=== PATIENT | male | born 1990 | race Caucasian/White ===

== ENCOUNTER 2018-11-17 14:13 | Observation (INO) | payer BC, OTHER ==
[2018-11-17] MEDS ORDERED: NITROGLYCERIN OINT 1 INCH/GM PACKET TOPICAL STA (14:51)
[2018-11-17] MEDS ORDERED: SODIUM CHLORIDE 0.9% 1,000 ML IV STA (14:51)
[2018-11-17] MEDS ORDERED: ASPIRIN 81 MG PO STA (14:51)
--- NOTE | 2018-11-17 14:54 | ED ---
General Adult HPI - General Chief complaint: Chest Pain Stated complaint: Chest pain Time Seen by Provider: 11/17/18 14:45 Source: patient, RN notes reviewed Mode of arrival: ambulatory Limitations: no limitations - History of Present Illness Initial comments: Patient is a pleasant 28-year-old male presenting to the emergency department complaining of chest discomfort. Onset of symptoms was a couple hours prior to arrival. Discomfort was 7 or 8/10 and now is 2 or 3/10. Discomfort feels like tightness in his chest. There is some radiation towards the back. No associated dyspnea or nausea. Patient did feel a little bit sweaty. Patient does have a family history of cardiac disease. No history of similar symptoms previously. - Related Data Home Medications Medication Instructions Recorded Confirmed No Known Home Medications 11/17/18 11/17/18 Allergies Allergy/AdvReac Type Severity Reaction Status Date / Time No Known Allergies Allergy Verified 11/17/18 15:13 Review of Systems ROS Statement: Those systems with pertinent positive or pertinent negative responses have been documented in the HPI. ROS Other: All systems not noted in ROS Statement are negative. Constitutional: Denies: fever Eyes: Denies: eye pain ENT: Denies: ear pain Respiratory: Denies: dyspnea Cardiovascular: Reports: chest pain Endocrine: Denies: fatigue Gastrointestinal: Denies: abdominal pain, nausea Genitourinary: Denies: dysuria Musculoskeletal: Reports: as per HPI Skin: Denies: rash Neurological: Denies: weakness Past Medical History Past Medical History: No Reported History History of Any Multi-Drug Resistant Organisms: None Reported Additional Past Surgical History / Comment(s): hand surgery Past Psychological History: No Psychological Hx Reported Smoking Status: Current every day smoker Past Alcohol Use History: None Reported Past Drug Use History: Marijuana General Exam Limitations: no limitations General appearance: alert, in no apparent distress Head exam: Present: atraumatic Eye exam: Present: normal appearance, PERRL ENT exam: Present: normal oropharynx Neck exam: Present: normal inspection Respiratory exam: Present: normal lung sounds bilaterally. Absent: chest wall tenderness Cardiovascular Exam: Present: regular rate, normal rhythm Expanded Peripheral pulses: 2+: Radial (R), Radial (L), Dorsalis Pedis (R), Dorsalis Pedis (L) GI/Abdominal exam: Present: soft. Absent: tenderness Extremities exam: Present: normal inspection. Absent: pedal edema, calf tenderness Neurological exam: Present: alert Psychiatric exam: Present: normal affect, normal mood Skin exam: Present: normal color Course Vital Signs 11/17/18 11/17/18 11/17/18 14:24 15:00 16:00 Temperature 98.2 F Pulse Rate 78 57 L 52 L Respiratory 18 16 16 Rate Blood Pressure 146/92 121/76 104/68 O2 Sat by Pulse 98 99 98 Oximetry EKG Findings - EKG Comments: EKG Findings:: Normal sinus rhythm at 61. VA 154. QRS 102. QT 392. QTC 394. Normal axis. Incomplete right bundle-branch block. No acute ST change. Medical Decision Making - Medical Decision Making Patient reevaluated and unchanged. Discomfort still remains between 2 and 3 however not resolved. Case was discussed in detail with Dr. lopez, covering for hospital call, who will admit. - Lab Data Result diagrams: 11/17/18 14:50 11/17/18 14:50 Lab Results 11/17/18 11/17/18 11/17/18 Range/Units 14:50 14:50 14:50 WBC 5.3 (3.8-10.6) k/uL RBC 4.61 (4.30-5.90) m/uL Hgb 13.8 (13.0-17.5) gm/dL Hct 40.9 (39.0-53.0) % MCV 88.7 (80.0-100.0) fL MCH 29.9 (25.0-35.0) pg MCHC 33.7 (31.0-37.0) g/dL RDW 12.6 (11.5-15.5) % Plt Count 242 (150-450) k/uL Neutrophils % 57 % Lymphocytes % 33 % Monocytes % 6 % Eosinophils % 2 % Basophils % 1 % Neutrophils # 3.0 (1.3-7.7) k/uL Lymphocytes # 1.7 (1.0-4.8) k/uL Monocytes # 0.3 (0-1.0) k/uL Eosinophils # 0.1 (0-0.7) k/uL Basophils # 0.0 (0-0.2) k/uL PT (9.0-12.0) sec INR (<1.2) APTT (22.0-30.0) sec D-Dimer (<0.60) mg/L FEU Sodium 140 (137-145) mmol/L Potassium 4.1 (3.5-5.1) mmol/L Chloride 106 (98-107) mmol/L Carbon Dioxide 28 (22-30) mmol/L Anion Gap 6 mmol/L BUN 16 (9-20) mg/dL Creatinine 0.91 (0.66-1.25) mg/dL Est GFR (CKD-EPI)AfAm >90 (>60 ml/min/1.73 sqM) Est GFR (CKD-EPI)NonAf >90 (>60 ml/min/1.73 sqM) Glucose 107 H (74-99) mg/dL Calcium 9.8 (8.4-10.2) mg/dL Magnesium 2.0 (1.6-2.3) mg/dL Total Bilirubin 1.4 H (0.2-1.3) mg/dL AST 35 (17-59) U/L ALT 35 (21-72) U/L Alkaline Phosphatase 56 (38-126) U/L Total Creatine Kinase 113 (55-170) U/L CK-MB (CK-2) 0.4 (0.0-2.4) ng/mL CK-MB (CK-2) Rel Index 0.4 Troponin I <0.012 (0.000-0.034) ng/mL Total Protein 6.8 (6.3-8.2) g/dL Albumin 4.3 (3.5-5.0) g/dL 11/17/18 Range/Units 14:50 WBC (3.8-10.6) k/uL RBC (4.30-5.90) m/uL Hgb (13.0-17.5) gm/dL Hct (39.0-53.0) % MCV (80.0-100.0) fL MCH (25.0-35.0) pg MCHC (31.0-37.0) g/dL RDW (11.5-15.5) % Plt Count (150-450) k/uL Neutrophils % % Lymphocytes % % Monocytes % % Eosinophils % % Basophils % % Neutrophils # (1.3-7.7) k/uL Lymphocytes # (1.0-4.8) k/uL Monocytes # (0-1.0) k/uL Eosinophils # (0-0.7) k/uL Basophils # (0-0.2) k/uL PT 10.6 (9.0-12.0) sec INR 1.0 (<1.2) APTT 27.0 (22.0-30.0) sec D-Dimer 0.20 (<0.60) mg/L FEU Sodium (137-145) mmol/L Potassium (3.5-5.1) mmol/L Chloride (98-107) mmol/L Carbon Dioxide (22-30) mmol/L Anion Gap mmol/L BUN (9-20) mg/dL Creatinine (0.66-1.25) mg/dL Est GFR (CKD-EPI)AfAm (>60 ml/min/1.73 sqM) Est GFR (CKD-EPI)NonAf (>60 ml/min/1.73 sqM) Glucose (74-99) mg/dL Calcium (8.4-10.2) mg/dL Magnesium (1.6-2.3) mg/dL Total Bilirubin (0.2-1.3) mg/dL AST (17-59) U/L ALT (21-72) U/L Alkaline Phosphatase (38-126) U/L Total Creatine Kinase (55-170) U/L CK-MB (CK-2) (0.0-2.4) ng/mL CK-MB (CK-2) Rel Index Troponin I (0.000-0.034) ng/mL Total Protein (6.3-8.2) g/dL Albumin (3.5-5.0) g/dL - Radiology Data Radiology results: image reviewed (Chest x-ray shows no acute process) Disposition Clinical Impression: Chest pain Disposition: ADMITTED IP TO THIS HOSP Is patient prescribed a controlled substance at d/c from ED?: No Referrals: None,Stated [Primary Care Provider] - 1-2 days Decision Time: 16:34
[2018-11-17 15:13] LABS: Basophils % (A) 1 %; Eosinophils # (A) 0.1 k/uL (0-0.7); Eosinophils % (A) 2 %; HCT 40.9 % (39.0-53.0); HGB 13.8 gm/dL (13.0-17.5); Lymphocytes # (A) 1.7 k/uL (1.0-4.8); Lymphocytes % (A) 33 %; MCH 29.9 pg (25.0-35.0); MCHC 33.7 g/dL (31.0-37.0); MCV 88.7 fL (80.0-100.0); Mean Platelet Volume 7.3; Monocytes # (A) 0.3 k/uL (0-1.0); Monocytes % (A) 6 %; Neutrophils % (A) 57 %; Platelet Count 242 k/uL (150-450); RBC 4.61 m/uL (4.30-5.90); RDW 12.6 % (11.5-15.5); WBC 5.3 k/uL (3.8-10.6)
[2018-11-17 15:25] LABS: ALT 35 U/L (21-72); AST 35 U/L (17-59); Albumin 4.3 g/dL (3.5-5.0); Alkaline Phosphatase 56 U/L (38-126); Anion Gap 6 mmol/L; Blood Urea Nitrogen 16 mg/dL (9-20); Calcium 9.8 mg/dL (8.4-10.2); Carbon Dioxide 28 mmol/L (22-30); Chloride 106 mmol/L (98-107); Glucose 107 mg/dL (74-99); Potassium 4.1 mmol/L (3.5-5.1); Sodium 140 mmol/L (137-145); Total Bilirubin 1.4 mg/dL (0.2-1.3); Total Protein 6.8 g/dL (6.3-8.2)
[2018-11-17 15:27] LABS: D-Dimer 0.2 mg/L FEU (<0.60); Prothrombin Time 10.6 sec (9.0-12.0)
[2018-11-17 15:32] LABS: Creatine Kinase 113 U/L (55-170)
[2018-11-17 15:45] LABS: Creatine Kinase MB 0.4 ng/mL (0.0-2.4); Troponin I <0.012 ng/mL (0.000-0.034)
--- NOTE | 2018-11-17 15:57 | XR ---
EXAMINATION TYPE: XR chest 2V DATE OF EXAM: 11/17/2018 COMPARISON: None HISTORY: 28-year-old male with left-sided chest pain TECHNIQUE: PA and lateral views FINDINGS: The cardiomediastinal silhouette, aorta, and pulmonary vasculature are within normal limits. Some str niles atelectasis in the midlung regions. Otherwise, lungs and pleural spaces are clear. IMPRESSION: No acute cardiopulmonary process.
[2018-11-17] MEDS ORDERED: NITROGLYCERIN SL TABS 0.4 MG TAB SUBLINGUAL PRN (16:34)
[2018-11-17 17:45] VITALS: BMI 23.3
[2018-11-17] MEDS ORDERED: NALOXONE 0.4 MG/ML 1 ML VIAL IV PRN (17:48)
[2018-11-17] MEDS ORDERED: ACETAMINOPHEN TAB 325 MG TAB PO PRN (17:48)
--- NOTE | 2018-11-17 17:51 | P.HPIM ---
History of Present Illness H&P Date: 11/17/18 Chief Complaint: chest pain Patient is a 28-year-old male with a past medical history of seizure disorder without seizures in years and off any medication as well as tobacco abuse who presented to the ER with complaints of chest pain. In the ER he underwent an extensive evaluation. His initial vital signs within normal limits. Laboratory analysis showed a slightly elevated bilirubin. Initial troponin was negative. EKG showed NSR at [address]-T wave changes. He was admitted for obs due to chest pain. Patient seen and examined at bedside in the ER. He was sitting drinking coffee this morning developed left-sided chest pain that went through to his back. It was shooting initially and then became tight in nature. It was associated with diaphoresis. He continued until he came to the ER. Improved with nitroglycerin. He denies any associated shortness of breath, lightheadedness, dizziness, pain in his jaw, unusual numbness or tingling, or nausea. He has not recently started or stopped any medications. He has not done anything unusual such as moving heavy objects, starting an exercise program, or taking long trips. He has increased stress at home as he has a 3 month old. He denies any recent cough, cold, fever, flu, or other unusual symptoms. 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 His father reportedly had multiple heart attacks in his 20s and 30s but does not have any stents placed is still alive and has not had any coronary artery bypass grafting performed. His maternal grandmother had a heart attack and multiple strokes. He smokes approximately 1.5 packs per day. No other risk factors. He denies any illicit drug use. He states that he had a stress test years ago. He is not having chest pain similar to this in the past. Review of Systems Pertinent positives and negatives as discussed in HPI, a complete review of systems was performed and all other systems are negative. 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 - Past Family History Father Family Medical History: Myocardial Infarction ([place]) Additional Family Medical History / Comment(s): Reported to have 3 heart attacks between his 20s and 30s Grandmother Additional Family Medical History / Comment(s): Heart attack and multiple strokes Medications and Allergies Home Medications Medication Instructions Recorded Confirmed Type No Known Home Medications 11/17/18 11/17/18 History Allergies Allergy/AdvReac Type Severity Reaction Status Date / Time No Known Allergies Allergy Verified 11/17/18 15:13 Physical Exam Osteopathic Statement: *. No significant issues noted on an osteopathic structural exam other than those noted in the History and Physical/Consult. Vitals: Vital Signs Temp Pulse Resp BP Pulse Ox 11/17/18 17:00 97.9 F 64 18 121/69 99 11/17/18 16:00 52 L 16 104/68 98 11/17/18 15:00 57 L 16 121/76 99 11/17/18 14:24 98.2 F 78 18 146/92 98 Intake and Output 11/17/18 11/17/18 11/17/18 06:59 14:59 22:59 Other: Weight 68.039 kg General: non toxic, no distress, appears at stated age, normal weight Derm: no unusual rashes/lesions no unusual ecchymoses, warm, dry Head: atraumatic, normocephalic, symmetric Eyes: EOMI, no lid lag, anicteric sclera, pupils equal round reactive to light ENT: Nose and ears atraumatic, no thrush, no pharyngeal erythema Neck: No thyromegaly, no cervical lymphadenopathy, trachea midline, supple Mouth: no lip lesion, mucus membranes moist Cardiovascular: S1S2 reg with fixed split S2, positive posterior tibial pulse bilateral, no edema, capillary refill less than 2 seconds, pain to palpation over left chest wall Lungs: CTA bilateral, no rhonchi, no rales , no accessory muscle use Abdominal: soft, nontender to palpation, no guarding, no appreciable organomegaly, normal bowel sounds Ext: no gross muscle atrophy, muscle strength 5 out of 5 in all 4 extremities grossly, no contractures, pain in left chest wall with abduction and with internal rotation of arm, positive empty can test, pain over biceps tendon insertion point with rotating wrist Neuro: CN II-XI grossly intact, light touch intact all 4 extremities, finger to nose within normal limits, Psych: Alert, oriented, appropriate affect Results CBC & Chem 7: 11/17/18 14:50 11/17/18 14:50 Labs: Abnormal Lab Results - Last 24 Hours (Table) 11/17/18 Range/Units 14:50 Glucose 107 H (74-99) mg/dL Total Bilirubin 1.4 H (0.2-1.3) mg/dL Comments: EKG is reviewed by myself reveals normal sinus rhythm at a rate of 61, CT 154, QRS 102, and QTC 394. No significant ST-T wave changes. Chest x-ray: report reviewed Thrombosis Risk Factor Assmnt - DVT/VTE Prophylaxis DVT/VTE Prophylaxis: Low risk, early ambulation encouraged Assessment and Plan Assessment: Chest pain, Biceps tendinitis -Risk factors include positive family history and tobacco abuse: Serial troponins, aspirin, cardio consult, and lipid profile -If cleared by cardiology then a trial of Motrin 600 mg every 8 hours 72 hours and Medrol Dosepak follow-up with PCP if no improvement consider orthopedic consultation -Anticipate discharge home in a.m. -With shoulder pain could be referred from gallbladder and elevated bilirubin will check gallbladder ultrasound Tobacco abuse Cessation The patient is placed in observation with an anticipated less than 2 per night stay for evaluation of chest pain. Surrogate decision-maker: -shelly CODE STATUS:Full code DVT prophylaxis: early ambulation Discussed with: patient, family, ed physician Anticipated discharge date: [address]: home A total of 55 minutes was spent on the care of this complex patient more than 50 % of the time was spent in counseling and care coordination.
[2018-11-17] MEDS: NITROGLYCERIN OINT 1 INCH/GM PACKET TOPICAL SCH (19:23)
[2018-11-17 21:34] LABS: Creatine Kinase 101 U/L (55-170)
[2018-11-17 21:47] LABS: Creatine Kinase MB 0.3 ng/mL (0.0-2.4); Troponin I <0.012 ng/mL (0.000-0.034)
[2018-11-18] MEDS: NITROGLYCERIN OINT 1 INCH/GM PACKET TOPICAL SCH ×2 (01:21→05:48)
[2018-11-18 03:23] LABS: Cholesterol 189 mg/dL (<200); HDL Cholesterol 35 mg/dL (40-60); LDL Cholesterol,Calculated 129 mg/dL (0-99); Triglycerides 125 mg/dL (<150)
[2018-11-18 03:25] LABS: Creatine Kinase 98 U/L (55-170)
[2018-11-18 03:39] LABS: Creatine Kinase MB 0.2 ng/mL (0.0-2.4); Troponin I <0.012 ng/mL (0.000-0.034)
--- NOTE | 2018-11-18 08:10 | US ---
EXAMINATION TYPE: US gallbladder DATE OF EXAM: 11/18/2018 COMPARISON: NONE CLINICAL HISTORY: pain, elevated pneumonia. chest pain, SOB EXAM MEASUREMENTS: Liver Length: 17.2 cm Gallbladder Wall: 0.2 cm CBD: 0.6 cm Right Kidney: 10.9 x 4.5 x 4.1 cm Pancreas: wnl Liver: wnl Gallbladder: echogenic foci on anterior wall toward neck, nonmobile, may represent a polyp, there ap pears to be small fold at neck level also Evidence for sonographic Crespo's sign: no CBD: wnl Right Kidney: 3 hyperechoic areas noted on anterior portion of right kidney, possible angiomyolipoma s versus other etiology Limited views of the pancreas are normal. The liver is upper limits of normal in size without biliary dilatation. There is a nonmobile 3 mm lesion within the neck of the gallbladder. This may represent a small gallb ladder polyp. The gallbladder wall measures 2 mm. The distal common hepatic duct is upper limits of n ormal 6 mm. There is no sonographic Crespo's sign. There are several tiny echogenic foci within the right kidney the largest measures 5 mm. This may rep resent fat interposed between a lobulated kidney or may represent small angiomyolipomas. There is no evidence of hydronephrosis. IMPRESSION: 1. PROBABLE GALLBLADDER POLYP. 2. ECHOGENIC FOCI SURROUNDING THE RIGHT KIDNEY DESCRIBED ABOVE.
[2018-11-18 08:47] VITALS: BP 108/70; PULSE 59; RESP 18; TEMP 97.4
[2018-11-18] MEDS ORDERED: ASPIRIN 325 MG TAB PO SCH (09:00)
--- NOTE | 2018-11-18 11:25 | CONS ---
CONSULTATION Mr. Arvizu is a 28-year-old gentleman who is seen for cardiac evaluation. This patient has a history of seizure disorder and came with intermittent chest pain. The patient has been having a chest pain in the left anterior part of the chest which comes and goes. It is a sharp shooting pain, lasting for few seconds. The pain is not related to exertion. Patient denies any cough with expectoration or any other history. He does have a strong family history of coronary artery disease. Denies any history of diabetes or hypertension. Patient does smoke. The patient denies any history of illicit drug use. Patient says he had a stress test done several years ago. PAST MEDICAL HISTORY: Includes history of seizure disorder. No history of any other major surgeries. REVIEW OF THE SYSTEM: Otherwise unremarkable. PHYSICAL EXAMINATION: Physical examination in the emergency room revealed patient's vital signs remain stable. The patient's blood pressure is 108/70 mmHg, heart rate is 60 per minute. HEENT examination is negative. Neck is supple. There is no increase in jugular venous pressure. Both the carotid pulses are felt. There is no bruit. Chest is symmetrical. Heart the PMI is not felt. First and second heart sounds are normal. There is no evidence of any murmur. Lungs are clinically clear to auscultation and percussion. Abdomen is soft. Liver and spleen are not enlarged. Bowel sounds are heard. EXTREMITIES: Peripheral pulses are 2+. EKG shows normal sinus rhythm without any acute ischemic changes. Cardiac enzymes are normal. FINAL IMPRESSION: This patient's chest pains are atypical chest pain. EKGs and cardiac enzymes are normal. The patient's bilirubin was 1.4. Ultrasound of the gallbladder is normal. The patient's LDL is 129. FINAL IMPRESSION: This patient's chest pains are suggestive of atypical chest pain. The patient will be evaluated with echocardiogram and stress test. In view of the patient's strong family history. We will start the patient on Lipitor 20 mg daily. Thank you for this consultation. MMODL / IJN: [id number] /
--- NOTE | 2018-11-18 13:57 | P.DS ---
Providers Date of admission: 11/17/18 16:35 Expected date of discharge: 11/18/18 Attending physician: Mitzi Nash DO Consults: 11/17/18 16:35 Consult Physician Urgent Consulting Provider: Rose Marie Meeks Consult Reason/Comments: cp Do you want consulting provider notified?: Yes Primary care physician: Stated None Hospital Course: Discharge Diagnosis: Biceps tendinitis Gallbladder polyp Chest pain, noncardiac Tobacco abuse Hospital Course: Patient is a 28-year-old male with a past medical history of seizure disorder without seizures in years and off any medication as well as tobacco abuse who presented to the ER with complaints of chest pain. In the ER he underwent an extensive evaluation. His initial vital signs within normal limits. Laboratory analysis showed a slightly elevated bilirubin. Initial troponin was negative. EKG showed NSR at [address]-T wave changes. He was admitted for obs due to chest pain. His troponins remained negative. Telemetry was unremarkable. Physical exam was consistent with biceps tendinitis or supraspinatus tendinitis. Gallbladder ultrasound demonstrated gallbladder polyp. He was seen by cardiology and did not demonstrate any acute ischemic changes. He will follow up with cardiology in the office for stress test or tenderness family history. I discussed with him the finding of gallbladder polyp and he will follow-up with Dr. Jose for possible cholecystectomy. We did review the risk of development of cancer with gallbladder polyps. I have also asked him to establish care with a primary care practitioner. He would like to establish with Nathaly Yoon nurse practitioner with Dr. Armstrong. He was determined stable for discharge home. I have asked him to take Motrin 400 mg 3 times daily for the next 48 hours to help decrease the inflammation in the biceps tendon. He does not have improvement in pain could consider orthopedic evaluation. Patient seen and examined at bedside. Pain much improved since yesterday with rest. No centralized chest pain, no shortness of breath, no nausea. Feeling better and asking to be discharged home. Vital signs reviewed and stable. General: non toxic, no distress, appears at stated age Derm: warm, dry Head: atraumatic, normocephalic, symmetric Eyes: EOMI, no lid lag, anicteric sclera Mouth: no lip lesion, mucus membranes moist Cardiovascular: S1S2 reg, no murmur, positive posterior tibial pulse bilateral, Lungs: CTA bilateral, no rhonchi, no rales , no accessory muscle use Abdominal: soft, nontender to palpation, no guarding, no appreciable organomegaly Ext: no gross muscle atrophy, no edema, no contractures Neuro: CN II-XI grossly intact, no focal neuro deficits Psych: Alert, oriented, appropriate affect A total of 25 minutes of time were spent preparing this complex discharge summary . Pertinent Studies: Color ultrasound-gallbladder polyp, and showed genic foci within the right kidney representing fat intraposed between lobulated kidney or small angiomyolipoma Patient Condition at Discharge: Stable Plan - Discharge Summary Discharge Rx Participant: No New Discharge Prescriptions: Continue No Known Home Medications Discharge Medication List No Known Home Medications 11/17/18 [History] Follow up Appointment(s)/Referral(s): Nathaly Sarmiento NPC [Nurse Practitioner] - 1-2 Days Rose Marie Meeks MD [STAFF PHYSICIAN] - 1 Week García Russell MD [STAFF PHYSICIAN] - 1 Week Activity/Diet/Wound Care/Special Instructions: please call [facility] tomorrow morning (11/19/18) schedule an appointment for echo and stress test to be done. Ibuprofen 400 mg three times daily for 1 -2 days to decrease inflammation then as needed Heart healthy diet, activity as tolerated Discharge Disposition: HOME SELF-CARE
[2018-11-18] MEDS ORDERED: ATORVASTATIN 20 MG TAB PO SCH (21:00)
== END 2018-11-18 12:22 | disposition home or self-care (01) ==
LOC: EC 14:13 → 1SOBS 16:35
PROVIDERS: ADMIT Internal Medicine; ATTEND Internal Medicine
DX: M75.20 Bicipital tendinitis, unspecified shoulder (principal); K82.4 Cholesterolosis of gallbladder; R07.89 Other chest pain; R17 Unspecified jaundice; M77.8 Other enthesopathies, not elsewhere classified; R61 Generalized hyperhidrosis; F17.210 Nicotine dependence, cigarettes, uncomplicated; Z82.49 Family history of ischemic heart disease and other diseases of the circulatory system; Z82.3 Family history of stroke
CPT/HCPCS: 96360; 96361; 99285; 36415; 93005; 85379; 80061; 80053; 82550 ×2; 82553 ×2; 83735; 84484 ×2; 85025; 85610; 85730; 71046; 76705; G0378 ×2

== ENCOUNTER 2018-12-06 07:31 | Day surgery (SDC) | payer OTHER ==
[2018-12-05 13:23] VITALS: BMI 24.3
[~2018-12-06 07:31] MED LIST: DEXAMETHASONE SOD PHOSPHATE 10 MG/ML 1 ML VIAL IV ONE; HEPARIN SODIUM,PORCINE 5,000 UNIT/ML 1 ML VIAL SQ ONE; LACTATED RINGERS 1,000 ML IV SCH; LIDOCAINE 1% 20 ML VIAL (10MG/ML) FOR IV START INTRADERMA PRN; MIDAZOLAM (PF) 2 MG/2 ML VIAL IV PRN; ONDANSETRON 4 MG/2 ML VIAL IVP ONE; SCOPOLAMINE 1.5MG/72HR PATCH TRANSDERM ONE; ceFAZolin IN SWFI 2 GM/20 ML SYRINGE IVP ONE
[2018-12-06 07:46] VITALS: RESP 16
--- NOTE | 2018-12-06 08:53 | P.GSHP ---
History of Present Illness H&P Date: 12/06/18 Chief Complaint: Right upper quadrant pain This is a 28-year-old male who's had complaints of right upper quadrant pain. Patient underwent recent ultrasound found have a gallbladder stone or polyp at the neck of the gallbladder. He presents today for laparoscopic cholecystectomy. Past Medical History Past Medical History: Seizure Disorder Additional Past Medical History / Comment(s): History of seizure disorder-was taken off all medications and no seizure in 10 years, umbilical hernia, gallstones/polyp on gallbladder, History of Any Multi-Drug Resistant Organisms: None Reported Past Surgical History: Orthopedic Surgery Additional Past Surgical History / Comment(s): Left hand little finger fracture repair, lip reconstruction age 3 after dog bite Past Anesthesia/Blood Transfusion Reactions: Motion Sickness Smoking Status: Former smoker - Past Family History Father Family Medical History: Cancer, Myocardial Infarction ([place]) Additional Family Medical History / Comment(s): Reported to have 3 heart attacks between age 20 to 45 Grandmother Additional Family Medical History / Comment(s): Heart attack and multiple strokes Medications and Allergies Home Medications Medication Instructions Recorded Confirmed Type No Known Home Medications 11/17/18 12/06/18 History Allergies Allergy/AdvReac Type Severity Reaction Status Date / Time No Known Allergies Allergy Verified 12/06/18 07:48 Surgical - Exam Vital Signs Temp Pulse Resp BP Pulse Ox 98.0 F 68 16 135/76 98 12/06/18 07:45 12/06/18 07:45 12/06/18 07:45 12/06/18 07:45 12/06/18 07:45 - General well developed, no distress - Eyes PERRL - ENT normal pinna - Neck no masses - Respiratory normal expansion - Cardiovascular Rhythm: regular - Abdomen Abdomen: soft, non tender Assessment and Plan Assessment: Right quadrant pain Chronic cholecystitis We'll perform laparoscopic cholecystectomy
[2018-12-06] MEDS ORDERED: GLYCOPYRROLATE 0.2 MG/ML 2 ML VIAL ONE (09:15)
[2018-12-06] MEDS ORDERED: LIDOCAINE 1% INJ 10MG/ML (20 ML MDV) ONE (09:15)
[2018-12-06] MEDS ORDERED: fentaNYL (PF) 50 MCG/ML 2 ML AMP ONE (09:15)
[2018-12-06] MEDS ORDERED: ROCURONIUM BROMIDE 10 MG/ML 10 ML VIAL IV ONE (09:15)
[2018-12-06] MEDS ORDERED: SUCCINYLCHOLINE CHLORIDE 100 MG/5 ML SYR IV ONE (09:15)
[2018-12-06] MEDS ORDERED: MIDAZOLAM 2 MG/2 ML VIAL ONE (09:15)
[2018-12-06] MEDS ORDERED: PROPOFOL 10 MG/ML 20 ML VIAL IV ONE (09:15)
[2018-12-06] MEDS ORDERED: NEOSTIGMINE 1 MG/ML 10 ML VIAL ONE (09:15)
[2018-12-06] MEDS ORDERED: BUPIVACAIN-EPI 0.25%-1:200,000 30 ML VIAL SQ ONE ×2 (09:27→09:32)
--- NOTE | 2018-12-06 09:53 | P.OP ---
Date of Procedure: 12/06/18 Preoperative Diagnosis: Cholecystitis Postoperative Diagnosis: Cholecystitis Procedure(s) Performed: Laparoscopic cholecystectomy Anesthesia: MICHEL Surgeon: García Russell Estimated Blood Loss (ml): 5 Pathology: other (Gallbladder) Condition: stable Disposition: PACU Description of Procedure: The patient was placed on the operating table. The patient received a general endotracheal tube anesthesia. The patients abdomen was prepped and draped in the usual sterile fashion. Through an infraumbilical stab incision, the fascia of the anterior abdominal wall was grasped with a pair of Kochers and then the Veress needle was placed in the peritoneal cavity. Position of the Veress needle was confirmed with positive drop test. The abdomen was then insufflated. After adequate insufflation, the 10 mm trocar was placed in the peritoneal cavity. Following this the laparoscope was placed in the peritoneal cavity. The patient was placed in the head-up, right side up position and then a 5 mm trocar was placed in the right lateral and right subcostal position under direct visualization. A 8 mm trocar was placed in the epigastric position. The gallbladder was grasped in the fundus and infundibulum. Traction on the gallbladder was placed in the lateral and the cephalad positions. The triangle of Calot was visualized.. The cystic duct was bluntly dissected until the union of the cystic duct and common bile duct was seen. The cystic duct was then divided and sealed with the Harmonic scissors. A PDS Endoloop was then placed throughout the cystic duct stump. The cystic artery divided and sealed with the Harmonic scissors. The gallbladder was then removed from the liver bed using Harmonic scissors. The gallbladder was then extracted through the epigastric port site. Operative field was checked for any bleeding spots and Harmonic scissors was used to coagulate the liver bed. The abdomen was irrigated. The trocars were removed. The skin was closed using interrupted 3-0 Vicryl suture. Dermabond dressing were applied. The patient tolerated the procedure well.
[2018-12-06] MEDS: HYDROmorphone 0.5 MG/0.5 ML SYRINGE IVP PRN ×4 (10:05→10:33)
[2018-12-06] MEDS ORDERED: KETOROLAC 30 MG/ML 1 ML VIAL IVP ONE (10:07)
[2018-12-06 10:10] VITALS: TEMP 97.5
[2018-12-06] MEDS ORDERED: SODIUM CHLORIDE 0.9% 1,000 ML IV ONE ×3 (10:13)
[2018-12-06 10:59] VITALS: PULSE 66
[2018-12-06] MEDS ORDERED: HYDROcodone/APAP 7.5-325MG 1 EACH TAB PO ONE (11:08)
[2018-12-06 11:18] VITALS: BP 120/75
== END 2018-12-06 11:47 | disposition home or self-care (01) ==
LOC: OR 07:31
PROVIDERS: ATTEND Surgery
DX: K81.1 Chronic cholecystitis (principal); G40.909 Epilepsy, unspecified, not intractable, without status epilepticus; Z87.891 Personal history of nicotine dependence
CPT/HCPCS: 88304; 47562; J2250; J1644; J1100; J2710; J2405; J2001; J3010; J1885; J0330; J2704; J1170; J0690

== ENCOUNTER → 2024-11-25 | Outpatient (CLI) | payer OTHER ==
--- NOTE | 2024-11-25 16:14 | US ---
EXAMINATION TYPE: US kidneys/renal and bladder DATE OF EXAM: 11/25/2024 COMPARISON: NONE CLINICAL INDICATION: Male, 34 years old with history of R30.0 DYSURIA; Hx prostatitis, dysuria TECHNIQUE: Grayscale imaging of the bilateral kidneys and urinary bladder: FINDINGS: EXAM MEASUREMENTS: Right Kidney: 11.6x4.0x6.5 cm Left Kidney: 11.2x5.5x4.9 cm Right Kidney: hydro Left Kidney: minimal hydro Bladder: wnl Bilateral Jets seen: Yes No nephrolithiasis is seen. No masses are identified. The urinary bladder is anechoic. IMPRESSION: 1. Bilateral mild hydronephrosis, greater on the right. [facility], , 11/25/2024 4:12 PM
--- NOTE | 2024-11-25 18:08 | US ---
EXAMINATION TYPE: US scrotum with doppler. DATE OF EXAM: 11/25/2024 COMPARISON: NONE CLINICAL INDICATION: Male, 34 years old with history of N48.9 PENIS DISPRDER; prostatitis, dysuria, p elvic discomfort TECHNIQUE: Grayscale, color Doppler and spectral Doppler imaging of the scrotum. FINDINGS: EXAM MEASUREMENTS: TESTICLES: Right Testicle: 4.6x2.4x2.9 cm Left Testicle: 4.6x2.6x3.0 cm EPIDIDYMIS HEAD: Right Epididymis: 1.3 cm Left Epididymis: 0.9 cm Doppler performed to assess for testicular vascularity; good bilateral color flow and spectral wavefo masood are seen. There is no evidence of testicular torsion. Presence of hydroceles: right Presence of varicoceles: bilateral right side scrotal mesfin, left 3mm epi head cyst IMPRESSION: 1. No suspicious ultrasound changes bilateral testicles [facility], , 11/25/2024 6:05 PM
== END | disposition home or self-care (01) ==
LOC: RADUSWWP 14:37
PROVIDERS: ATTEND Internal Medicine
DX: R53.0 Neoplastic (malignant) related fatigue (principal); N48.9 Disorder of penis, unspecified; R30.0 Dysuria; R39.15 Urgency of urination; N13.30 Unspecified hydronephrosis
CPT/HCPCS: 76770; 76870; 93975

== ENCOUNTER → 2025-01-15 | Outpatient (CLI) | payer OTHER ==
--- NOTE | 2025-01-15 15:58 | CT ---
EXAMINATION TYPE: CT abdomen pelvis wo con DATE OF EXAM: 01/15/2025 COMPARISON: 01/01/2013 CLINICAL INDICATION: Male, 34 years old with history of N13.30 UNSPECIFIED HYDRONEPHROSIS; PHH, urine retention TECHNIQUE: CT scan of the abdomen and pelvis is performed without oral or IV contrast. CT DLP: 301.[address] CTDI: mGy Automated exposure control for dose reduction was used. FINDINGS: Within the limitations of a non-contrast study, the following observations are made. The lungs are clear. There is surgical absence of gallbladder. There is no biliary ductal dilatation. There is no organomegaly of the liver, pancreas, spleen or adrenal glands. There are no renal calcifications or hydronephrosis. The caliber of the abdominal aorta is normal and there is no retroperitoneal adenopathy or hemorrhage . The bowel loops are normal in caliber is no evidence of obstruction. No inflammatory changes are iden tified in the mesentery and there is no free intraperitoneal air or fluid. There is no pelvic mass, free fluid, abscess or adenopathy. The osseous structures and soft tissues are unremarkable. IMPRESSION: No significant abnormality seen. [facility], , 01/15/2025 3:56 PM
== END | disposition home or self-care (01) ==
LOC: RADCTMAIN 15:32
PROVIDERS: ATTEND Urology
DX: N13.30 Unspecified hydronephrosis (principal); R33.9 Retention of urine, unspecified
CPT/HCPCS: 74176